=== PATIENT | male | born 1995 ===

== ENCOUNTER 2024-11-09 11:30 | Inpatient (IN) | payer OTHER, SELFPAY ==
[2024-11-09 11:42] VITALS: BP 117/64; PULSE 83; RESP 16; TEMP 36.4; O2SAT 98
[2024-11-09 11:53] VITALS: BMI 23.3
--- NOTE | 2024-11-09 12:47 | PC.NURSE ---
Addendum entered by Cindi Garrett RN 11/09/24 17:23: Darleen Rogers RN phone: [phone] Original Note: Spoke with Morelia PEDRAZA at [facility], stated pt was taking Risperdal 1mg BID, last dose yesterday. Pt stated he does not take any medications and does not have a pharmacy because he does not have an ID, but he stated he was taking Suboxone 8mg/2mg while at [facility]. Spoke with Darleen Rogers RN at [facility], stated pt was taking Suboxone 8mg/2mg TID, last picked up 21 films yesterday. Pt is interested in starting Suboxone while he's here but said sold his films for heroin.
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
--- NOTE | 2024-11-09 14:42 | HO.PSYADMNOT ---
HPI Date of Service: 11/09/24 Chief Complaint: Schizophrenia, unspecified Sources of Information: patient interviewed, chart reviewed and crisis/core team assessment reviewed HPI Subjective Notes: Engel Warning and Conditional Voluntary Narrative: Patient is a 29-year-old male with history of schizophrenia, opiate use disorder and cocaine use disorder who presented to ER due to increased auditory and visual hallucinations secondary to medication noncompliance and increased substance use. Per crisis report, patient presented to ER reporting hearing voices and visual hallucinations. He states voices are telling him to kill himself. He denies any attempt to hurt himself. Patient does not have outpatient psychiatric providers. Patient reports using cocaine and heroin prior to going into ER. U tox positive for THC and fentanyl. History of 1 detox admission. Denies history of suicide attempts. denies hx of SIB. per pt, hx of multiple inpatient psychiatric hospitalizations. During admission assessment, patient presents alert and oriented x3. Calm and cooperative. Patient reports feeling anxious; patient stated, I'm hearing voices and seeing things after I smoked weed. It was getting overwhelming. I was off my meds for a day. The voices telling me I'm no good and I'm having visual hallucinations of faces . denies SI/HI. He reports he does not have outpatient psychiatric providers in that he utilizes the [facility] walk in clinic. Patient reports he would like help having his medications adjusted and plans on going to a fdc. Patient reports he has no interest in obtaining sobriety at this time and does not want to go to a program. Past Psychiatric History: History of 1 detox admission. Denies history of suicide attempts. denies hx of SIB. Patient reports hx of multiple inpatient psychiatric hospitalizations. Medical Evaluation Reviewed: Yes [facility] Family History: Denies Social History: Homeless. Single. No kids. Unemployed. GED. Substance History: Patient reports he uses heroin, crack and marijuana. Trauma History: Denies Diagnostics Vital Signs (24Hr): Vital Signs - 24 hr 11/09/24 11:42 Temperature 97.6 F Pulse Rate 83 Respiratory Rate 16 Blood Pressure 117/64 Pulse Oximetry 98 Oxygen Delivery Method Room Air BMI result Body Mass Index 23.3 Meds/Allergies Meds Home Medications ?Medication ?Instructions ?Recorded ?Confirmed ?Type Risperdal 1 mg PO BID 11/09/24 11/09/24 History Suboxone 8 mg sublingual TID 11/09/24 11/09/24 History buprenorphine 8 mg-naloxone 2 mg 1 film buccal TID 11/09/24 11/09/24 History sublingual film (Suboxone) Allergies Allergies Allergy/AdvReac Type Severity Reaction Status Date / Time No Known Allergies Allergy Verified 11/09/24 11:54 Mental Status Exam Mental Status Exam Narrative: Pt is alert and oriented; behavior is cooperative and calm; dressed in casual attire; mood is described as anxious ; eye contact appropriate; Speech is normal rate, volume and not pressured; thought process is organized and goal directed; Thought content is on tx; denies SI/HI. Patient reports auditory and visual hallucinations. Assessment & Plan Assessment & Plan (1) Schizophrenia: Status: Acute Code(s): F20.9 - Schizophrenia, unspecified (2) Opioid use disorder: Status: Acute Code(s): F11.90 - Opioid use, unspecified, uncomplicated (3) Cocaine use disorder: Status: Acute Code(s): F14.10 - Cocaine abuse, uncomplicated Plan Patient is a 29-year-old male with history of schizophrenia, opiate use disorder and cocaine use disorder who presented to ER due to increased auditory and visual hallucinations secondary to medication noncompliance and increased substance use. Plan: CV 15 minute safety checks Continue home medications Obtain collateral Referral to outpatient psychiatric providers Encourage groups Encourage medication compliance Discharge planning Patient educated on: diagnosis and medication risk/benefits Reason for continued inpatient stay Substantial Risk for: med/psych decompensation Statement Statement: I have reviewed the history and physical and performed a pertinent examination on my patient. No changes have occurred unless specified. If the History and Physical was not performed prior to admission, the Hospitalist's service will be consulted for completing the admission physical. Time Spent With Patient Time: Total time managing care of this patient today _60___ minutes.
[2024-11-09 19:40] VITALS: BP 152/75; PULSE 95; RESP 18; TEMP 36.9; O2SAT 97
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
[2024-11-09] MEDS: traZODone HCL 50 MG TABLET PO (20:27)
[2024-11-09] MEDS: risperiDONE 1 MG TABLET PO (20:27)
[2024-11-10 07:21] LABS: Appearance Urine Clear; Color Urine Yellow; Glucose Urine UA Negative (Negative); Leukocyte Esterase Urine Negative (Negative); Nitrite Urine Negative (Negative); Urine Blood Negative (Negative); Urine Ketones Negative (Negative); Urine Protein Negative (Neg-Trace)
[2024-11-10 10:30] VITALS: BP 161/65; PULSE 94; RESP 16; TEMP 37.2; O2SAT 99
[2024-11-10] MEDS: Buprenorphine/Naloxone 8/2 mg FILM 1 FILM SUBLINGUAL ×3 (10:37→21:15)
[2024-11-10] MEDS: risperiDONE 1 MG TABLET PO (10:37)
[2024-11-10] MEDS: Omeprazole 20 MG CAPSULE.DR PO (10:37)
[2024-11-10] MEDS: Nicotine 21 MG PATCH.TD24 TRANSDERMA (10:39)
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
[2024-11-10 20:00] VITALS: BP 140/68; PULSE 86; RESP 16; TEMP 36.7; O2SAT 97
[2024-11-10] MEDS: risperiDONE 2 MG TABLET PO (21:15)
[2024-11-10] MEDS: traZODone HCL 100 MG TABLET 200 MG PO (21:15)
[2024-11-10] MEDS: Mineral Oil/Petrolatum,White 106 GM Tube 1 APPL TOPICAL (21:16)
[2024-11-11 08:08] VITALS: RESP 16
[2024-11-11] MEDS: Acetaminophen 325 MG TABLET 650 MG PO (08:34)
[2024-11-11] MEDS: Nicotine 21 MG PATCH.TD24 TRANSDERMA (08:36)
[2024-11-11] MEDS: Omeprazole 20 MG CAPSULE.DR PO (08:37)
[2024-11-11] MEDS: risperiDONE 1 MG TABLET PO (08:37)
[2024-11-11] MEDS: Buprenorphine/Naloxone 8/2 mg FILM 1 FILM SUBLINGUAL ×3 (08:37→21:31)
[2024-11-11 10:45] LABS: Alanine Aminotransferase 26 U/L (0-40); Albumin Level 4.2 g/dL (3.5-5.0); Alkaline Phosphatase 83 U/L (39-117); Anion Gap 13 (12-20); Aspartate Amino Transferase 23 U/L (5-37); Bilirubin Total 0.1 mg/dL (0.0-1.0); Blood Urea Nitrogen 23 mg/dL (9-16); Calcium 8.9 mg/dL (8.4-10.2); Carbon Dioxide 26 mmol/L (22-29); Chloride 105 mmol/L (96-108); Cholesterol 173 mg/dL (<200); Creatinine Clr Calc Pharmacy 172.2; Estimated Glomerular Filt Rate > 60; Glucose Random 105 mg/dL (60-115); HDL Cholesterol 44 mg/dL (>40); LDL Cholesterol Calculated 82 mg/dL (<100); Potassium 4.3 mmol/L (3.3-5.1); Sodium 140 mmol/L (135-145); Total Protein 6.9 g/dL (6.5-8.0); Triglycerides 239 mg/dL (<150)
[2024-11-11 11:07] LABS: Estimated Average Glucose 111 mg/dL; Hemoglobin A1C 120.7037 umol/L; Hemoglobin A1c % 5.5 % (<6.0); Total Hemoglobin (HGBA1C) 3256.2524 umol/L
[2024-11-11] MEDS: Loratadine 10 MG TABLET PO (11:34)
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
[2024-11-11 20:00] VITALS: BP 139/74; PULSE 91; RESP 16; TEMP 36.7; O2SAT 97
[2024-11-11] MEDS: Mineral Oil/Petrolatum,White 106 GM Tube 1 APPL TOPICAL (21:30)
[2024-11-11] MEDS: hydrOXYzine HCL 50 MG TABLET PO (21:30)
[2024-11-11] MEDS: risperiDONE 2 MG TABLET PO (21:30)
[2024-11-11] MEDS: traZODone HCL 100 MG TABLET 200 MG PO (21:31)
[2024-11-11] MEDS: traZODone HCL 50 MG TABLET PO (22:40)
[2024-11-12] MEDS: risperiDONE 1 MG TABLET PO (08:54)
[2024-11-12] MEDS: Buprenorphine/Naloxone 8/2 mg FILM 1 FILM SUBLINGUAL ×3 (08:54→21:56)
[2024-11-12] MEDS: Omeprazole 20 MG CAPSULE.DR PO (08:54)
[2024-11-12] MEDS: Loratadine 10 MG TABLET PO (08:54)
[2024-11-12] MEDS: Nicotine 21 MG PATCH.TD24 TRANSDERMA (08:54)
[2024-11-12] MEDS: Acetaminophen 325 MG TABLET 650 MG PO (08:58)
[2024-11-12] MEDS: Ibuprofen 400 MG TABLET PO ×2 (12:33→21:57)
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
[2024-11-12 20:00] VITALS: BP 133/77; PULSE 105; RESP 16; TEMP 36.8; O2SAT 97
[2024-11-12] MEDS: hydrOXYzine HCL 50 MG TABLET PO (21:56)
[2024-11-12] MEDS: risperiDONE 3 MG TABLET PO (21:56)
[2024-11-12] MEDS: traZODone HCL 50 MG TABLET 150 MG PO (21:57)
[2024-11-12] MEDS: Mineral Oil/Petrolatum,White 106 GM Tube 1 APPL TOPICAL (22:12)
[2024-11-13 04:32] LABS: Syphilis Screen Nonreactive (Nonreactive)
[2024-11-13 04:58] LABS: HBsAGNum1 0.31 S/CO (0.00-0.99); HIV AB/AG Nonreactive (Nonreactive); HIV Num 1 0.06 S/CO (0.00-0.99); Hepatitis A Antibody IgM 0.22 Index (0-0.79); Hepatitis B Core Antibody Nonreactive (Nonreactive); Hepatitis B Surface Antigen Negative (Negative); ~HepC Num1 0.23 S/CO (0.00-0.79); ~Hepatitis A Antibody IgM Nonreactive (Nonreactive); ~Hepatitis B Surface Antibody NONREACTIVE (Nonreactive); ~Hepatitis C Antibody Nonreactive (Nonreactive)
[2024-11-13] MEDS: Loratadine 10 MG TABLET PO (10:41)
[2024-11-13] MEDS: risperiDONE 1 MG TABLET PO (10:41)
[2024-11-13] MEDS: Nicotine 21 MG PATCH.TD24 TRANSDERMA (10:41)
[2024-11-13] MEDS: Buprenorphine/Naloxone 8/2 mg FILM 1 FILM SUBLINGUAL ×3 (10:44→21:25)
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
[2024-11-13] MEDS: hydrOXYzine HCL 25 MG TABLET PO (18:07)
[2024-11-13 20:00] VITALS: BP 132/80; PULSE 110; RESP 18; TEMP 36.8; O2SAT 96
[2024-11-13] MEDS: risperiDONE 3 MG TABLET PO (21:24)
[2024-11-13] MEDS: hydrOXYzine HCL 50 MG TABLET PO (21:24)
[2024-11-13] MEDS: traZODone HCL 50 MG TABLET 150 MG PO (21:24)
--- NOTE | 2024-11-14 09:20 | P.DS_ITS ---
DS: Providers Provider Date of Service: 11/14/24 Date of admission: 11/09/24 11:30 Date of discharge: 11/14/24 Primary care physician: Amalia Physician Admitting clinician: Louisa Solomon Attending physician on admission: Marshall Galvan Consults: 11/09/24 16:05 Consult to Hospitalist Routine Comment: Consulting Provider: [facility] [place] [facility] Hospitalists Reason For Exam: new admit, H&P Attending physician on discharge: Marshall Galvan Discharging clinician: Louisa Solomon DS: Diagnosis Discharge Diagnosis (1) GERD (gastroesophageal reflux disease): Status: Acute DS: Medications Discharge Medications Home Medications: Home Medications ?Medication ?Instructions ?Recorded ?Confirmed Risperdal 1 mg PO BID 11/09/24 11/09/24 Suboxone 8 mg sublingual TID 11/09/24 11/09/24 buprenorphine 8 mg-naloxone 2 mg 1 film buccal TID 11/09/24 11/09/24 sublingual film (Suboxone) Mental Status Exam Mental Status Exam Narrative: Pt is alert and oriented; behavior is cooperative and calm; dressed in casual attire; mood is described as good ; eye contact appropriate; Speech is normal rate, volume and not pressured; thought process is organized; Thought content is on discharge; denies SI/HI/VH/AH. Data Data Completed and Pending Completed studies during hospitalization [Text1]: 11/10/24 11/11/24 07:00 10:14 Sodium 140 Potassium 4.3 Chloride 105 Carbon Dioxide 26 Anion Gap 13 BUN 23 H Creatinine 0.68 Estim Creat Clear Calc 172.2 Estimated GFR > 60 Random Glucose 105 Estimat Average Glucose 111 Hemoglobin A1c % 5.5 Calcium 8.9 Total Bilirubin 0.1 AST 23 ALT 26 Alkaline Phosphatase 83 Total Protein 6.9 Albumin 4.2 Triglycerides 239 H Cholesterol 173 LDL Cholesterol, Calc 82 HDL Cholesterol 44 Urine Color Yellow Urine Appearance Clear Urine pH 6.0 Ur Specific [place] 1.020 Urine Protein Negative Urine Glucose (UA) Negative Urine Ketones Negative Urine Blood Negative Urine Nitrite Negative Ur Leukocyte Esterase Negative T.pallidum Ab (EIA) Nonreactive Hepatitis A IgM Ab Nonreactive Hep Bs Antigen Negative Hep Bs Antibody NONREACTIVE Hep B Core Total Ab Nonreactive Hepatitis C Ab (EIA) Nonreactive HIV 1&2 Ab/P24 Ag 4thGn Nonreactive DS: Summary Hospital Course Hospital Course: Patient is a 29-year-old male with history of schizophrenia, opiate use disorder and cocaine use disorder who presented to ER due to increased auditory and visual hallucinations secondary to medication noncompliance and increased substance use. Per crisis report, patient presented to ER reporting hearing voices and visual hallucinations. He states voices are telling him to kill himself. He denies any attempt to hurt himself. Patient does not have outpatient psychiatric providers. Patient reports using cocaine and heroin prior to going into ER. U tox positive for THC and fentanyl. History of 1 detox admission. Denies history of suicide attempts. denies hx of SIB. per pt, hx of multiple inpatient psychiatric hospitalizations. During admission assessment, patient presents alert and oriented x3. Calm and cooperative. Patient reports feeling anxious; patient stated, I'm hearing voices and seeing things after I smoked weed. It was getting overwhelming. I was off my meds for a day. The voices telling me I'm no good and I'm having visual hallucinations of faces . denies SI/HI. He reports he does not have outpatient psychiatric providers in that he utilizes the [facility] walk in clinic. Patient reports he would like help having his medications adjusted and plans on going to a jail. Patient reports he has no interest in obtaining sobriety at this time and does not want to go to a program. Continue home medications. Referral to outpatient psychiatric providers. Encourage groups. Encourage medication compliance. Discharge planning. 3-day notice signed. suboxone 8 TID restarted. trazodone 200 QHS started at pt request for insomnia. pt agreeable to increase risperidone 1 BID to 1/2 as of tonight for ongoing AH. Sx improved today but not resolved. still some difficulty sleeping, c/o opioid itch. agreeable to start loratadine 10 daily and to add hydroxyzine 50 QHS for help with sleep and in the event his nocturnal restlessness is akathisia. AH continue, noted to be self-dialoguing. quite symptomatic last night, pacing all day and night yesterday, screaming at overnight. finally slept after 250 of trazodone, but now feels hungover. increase HS risperidone to 3 mg, decrease HS trazodone to 150 (has 50 PRN as well). slept 6 hours overnight, sleeping heavy and late. 3-day up tomorrow, pt wants to go. denies any safety concerns as well as pychotic Sx. awaiting suboxone clinic appointment. Patient reports feeling good today; focused on discharge. denies SI/HI/VH/AH. Pt reports he plans on being medication compliant and following up with his outpatient providers. 3 day up 11/14/24. Status at Discharge Cognitive/behavioral status at discharge: Patient has insight and demonstrates good judgment in terms of wanting to pursue treatment. Patient has a safety plan that includes presenting to the closest ER or calling 911 if feeling unsafe. Functional status at discharge: independent ambulation Overall status at discharge: patient is back to baseline Time Spent with Patient Time attestation: Total time managing care of this patient today _20___ minutes. Time spent: Less than 30 minutes Discharge Plan Discharge Anticipated Discharge Date/Time: 11/14/24 09:20 Patient Disposition: Home, Self-Care Discharge Diagnosis: Schizophrenia, opioid use d/o, cocaine use d/o Referrals: [facility] [Other] - 3-5 Days (This is a same day walk in intake for psychiatry and therapy. Walk-in Hours: M-F 8am - 8pm Sat 9am - 5pm The first appointment is an intake only. It is recommended you get your intake in as soon as possible as there will likely be a wait time between your intake and your first psychiatry and therapy appointments. ) [facility] Suboxone Appt with DUSTIN Chow [Other] - 11/20/24 9:00 am Physician,None [Primary Care Provider] - 1 Week Discharge Medications: New risperidone 3 mg Tablet 3 mg PO BEDTIME 30 Days Qty: 30 0RF risperidone 1 mg Tablet 1 mg PO DAILY 30 Days Qty: 30 0RF buprenorphine-naloxone 8-2 mg Film 1 film sublingual TID 6 Days Qty: 18 0RF Continued Suboxone 8 mg sublingual TID Discontinued Risperdal 1 mg PO BID buprenorphine-naloxone [Suboxone] 8-2 mg Film 1 film BUCCAL TID Discharge Orders: Discharge Order (Routine); Ordered 11/14/24 Ordered By: Louisa Solomon Diet: Regular diet Activity on Discharge: As tolerated Stand Alone Forms: Patient Portal Discharge page, Community Support Print Language: Mauritian Care Plan Goals: Maintain mood and safe behaviors Take medications as prescribed Continue to pursue sobriety Practice coping skills Continue with outpatient providers and reach out to them as needed Health Concerns: Mood stability and behaviors Sobriety Plan of Treatment: Follow up with your PCP, psychiatric provider and other outpatient providers regarding above concerns Take medications as prescribed Assessment: Patient has insight and demonstrates good judgment in terms of wanting to pursue treatment. Patient has a safety plan that includes presenting to the closest ER or calling 911 if feeling unsafe. Discharge Date/Time: 11/14/24 11:30
[2024-11-14] MEDS: Naloxone HCl Nasal TAKE HOME 4 MG SPRAY 8 MG NOSTRILALT (10:54)
[2024-11-14] MEDS: risperiDONE 1 MG TABLET PO ×2 (10:57)
[2024-11-14] MEDS: Ibuprofen 400 MG TABLET PO (11:07)
[2024-11-14] MEDS: Buprenorphine/Naloxone 8/2 mg FILM 1 FILM SUBLINGUAL (11:08)
== END 2024-11-14 11:30 | disposition home or self-care (01) | DRG 750 ==
PROVIDERS: Nurse Practitioner Family; Admitting Provider Psychiatry & Neurology Psychiatry; Responsible Provider Registered Nurse; Visit Provider Psychiatry & Neurology Psychiatry
DX: F20.9 Schizophrenia, unspecified (principal); F11.20 Opioid dependence, uncomplicated; K21.9 Gastro-esophageal reflux disease without esophagitis; F17.210 Nicotine dependence, cigarettes, uncomplicated; F19.10 Other psychoactive substance abuse, uncomplicated; F14.10 Cocaine abuse, uncomplicated; Z71.6 Tobacco abuse counseling; Z91.148 Patient's other noncompliance with medication regimen for other reason; Z79.899 Other long term (current) drug therapy
CPT/HCPCS: 36415; 80053; 80061; 81003; 83036; 86704; 86706; 86709; 86780; 86803; 87340; 87389

== ENCOUNTER → 2024-11-09 11:30 | Outpatient (BNV) | payer MEDICAID, SELFPAY | PROVIDERS: Admitting Provider Psychiatry & Neurology Psychiatry; Responsible Provider Registered Nurse; Visit Provider Nurse Practitioner Family | DX: K21.9 Gastro-esophageal reflux disease without esophagitis (principal) | CPT/HCPCS: 99222 ==

== ENCOUNTER → 2024-11-09 11:30 | Outpatient (BNV) | payer OTHER, SELFPAY | PROVIDERS: Admitting Provider Psychiatry & Neurology Psychiatry; Responsible Provider Registered Nurse; Visit Provider Registered Nurse | DX: F20.9 Schizophrenia, unspecified (principal); F14.10 Cocaine abuse, uncomplicated; F11.90 Opioid use, unspecified, uncomplicated | CPT/HCPCS: 99231; 99232; 99233 ==